=== PATIENT | male | born 1960 | race Caucasian/White ===

== ENCOUNTER 2017-07-14 16:10 | Emergency (ER) | payer MEDICAID, OTHER ==
[2017-07-14] MEDS ORDERED: Albuterol/Ipratropium 3.0-0.5 MG/3 ML Neb Soln ONE (16:26)
[2017-07-14] MEDS ORDERED: Sodium Chloride 0.9% 10 ML Syringe FLUSH PRN (16:32)
--- NOTE | 2017-07-14 16:39 | EDM.PDOC ---
ED HPI GENERAL MEDICAL PROBLEM - General Chief Complaint: Respiratory Problem Stated Complaint: HARD TIME BREATHING [id number] Time Seen by Provider: 07/14/17 16:33 Source of Information: Reports: Patient History Limitations: Reports: No Limitations - History of Present Illness INITIAL COMMENTS - FREE TEXT/NARRATIVE: 56 yo male presents with difficulty breathing. States that he has had shortness of breath for the pas three days. Worse with side laying. productive cough since . States that he has been having cold like symptoms. denies pain. No other complaints. Onset Date: 07/11/17 Duration: Getting Worse Location: Reports: Chest Quality: Reports: Ache Severity: Mild Improves with: Reports: None Worsens with: Reports: Breathing, Movement Context: Reports: Activity Associated Symptoms: Reports: No Other Symptoms Chest Pain Score (Numeric/FACES): 7 - Related Data Allergies Allergy/AdvReac Type Severity Reaction Status Date / Time No Known Allergies Allergy Verified 07/14/17 16:27 Home Meds: Home Meds . [No Known Home Meds] 10/19/16 [History] Past Medical History HEENT History: Reports: Impaired Vision Respiratory History: Reports: COPD Hematologic History: Reports: None Immunologic History: Reports: None Oncologic (Cancer) History: Reports: None - Past Surgical History Male Surgical History: Reports: Vasectomy Musculoskeletal Surgical History: Reports: Carpal Tunnel Social & Family History - Tobacco Use Smoking Status *Q: Light Tobacco Smoker Years of Tobacco use: 30 Packs/Tins Daily: 0.5 Used Tobacco, but Quit: No Second Hand Smoke Exposure: No - Alcohol Use Days Per Week of Alcohol Use: 6 Number of Drinks Per Day: 1 Total Drinks Per Week: 6 - Recreational Drug Use Recreational Drug Use: Yes Drug Use in Last 12 Months: No Recreational Drug Type: Reports: Marijuana/Hashish, Other (see below) Other Recreational Drug Type: Dope ED ROS GENERAL - Review of Systems Review Of Systems: ROS reveals no pertinent complaints other than HPI. ED EXAM, GENERAL - Physical Exam Exam: See Below Exam Limited By: No Limitations General Appearance: Alert, WD/WN, No Apparent Distress Eye Exam: Bilateral Eye: EOMI, PERRL Nose: Normal Inspection, Normal Mucosa, No Blood Throat/Mouth: Normal Inspection, Normal Lips, Normal Teeth, Normal Gums, Normal Oropharynx, Normal Voice, No Airway Compromise Head: Atraumatic, Normocephalic Neck: Normal Inspection, Supple, Non-Tender, Full Range of Motion Respiratory/Chest: Rhonchi, Wheezing (diffusely) Cardiovascular: Normal Peripheral Pulses, No Edema, No Gallop, No JVD, No Murmur , No Rub, Tachycardia GI/Abdominal: Normal Bowel Sounds, Soft, Non-Tender, No Organomegaly, No Distention, No Abnormal Bruit, No Mass Neurological: Alert, Oriented, CN II-XII Intact, Normal Cognition, Normal Gait, No Motor/Sensory Deficits Skin Exam: Warm, Dry, Intact, Normal Color, No Rash Course - Vital Signs Last Recorded V/S: Last Vital Signs Temp 100.2 F 07/14/17 16:20 Pulse 92 07/14/17 17:04 Resp 24 H 07/14/17 17:04 BP 118/84 07/14/17 17:04 Pulse Ox 99 07/14/17 17:04 - Orders/Labs/Meds Orders: Active Orders 24 hr Category Date Time Status EKG Documentation Completion [RC] STAT Care 07/14/17 16:32 Active RT Aerosol Therapy [RC] ASDIRECTED Care 07/14/17 17:29 Active Sodium Chloride 0.9% [Saline Flush] Med 07/14/17 16:32 Active 10 ml FLUSH ASDIRECTED PRN Saline Lock Insert [OM.PC] Stat Oth 07/14/17 16:32 Ordered Medication Orders Sodium Chloride (Saline Flush) 10 ml FLUSH ASDIRECTED PRN PRN Reason: Keep Vein Open Last Admin: 07/14/17 16:25 Dose: 10 ml Labs: Laboratory Tests 07/14/17 07/14/17 07/14/17 Range/Units 16:22 16:22 16:22 WBC 11.3 H (5.0-10.0) 10^3/uL RBC 4.81 (4.6-6.2) 10^6/uL Hgb 15.4 (14.0-18.0) g/dL Hct 45.0 (40.0-54.0) % MCV 93.6 (80-100) fL MCH 32.0 (27.0-34.0) pg MCHC 34.2 (33.0-35.0) g/dL Plt Count 314 (150-450) 10^3/uL Neut % (Auto) 83.3 H (42.2-75.2) % Lymph % (Auto) 8.2 L (20.5-50.1) % [place] % (Auto) 8.1 H (2-8) % Eos % (Auto) 0.2 L (1.0-3.0) % Baso % (Auto) 0.2 (0.0-1.0) % PT 9.9 (9.0-12.0) SEC INR 1.0 (0.9-1.2) Sodium 137 (135-145) mmol/L Potassium 3.6 (3.6-5.0) mmol/L Chloride 102 (101-111) mmol/L Carbon Dioxide 21.0 (21.0-31.0) mmol/L Anion Gap 17.6 BUN 12 (7-18) mg/dL Creatinine 1.1 (0.6-1.3) mg/dL Est Cr Clr Drug Dosing TNP Estimated GFR (MDRD) > 60 BUN/Creatinine Ratio 10.90 Glucose 163 H (74-105) mg/dL Calcium 8.9 (8.4-10.2) mg/dl Total Bilirubin 0.7 (0.2-1.0) mg/dL AST 33 (10-42) IU/L ALT 21 (10-60) IU/L Alkaline Phosphatase 72 (42-121) IU/L Creatine Kinase (26-174) IU/L Creatine Kinase Index (0-2.4) % CK-MB (CK-2) (0.4-4.7) ng/mL Troponin I < 0.02 (0.00-0.02) ng/ml B-Natriuretic Peptide 7 (0-100) pg/ml Total Protein 7.3 (6.7-8.2) g/dl Albumin 4.1 (3.2-5.5) g/dl Globulin 3.2 Albumin/Globulin Ratio 1.28 08/27/17 Range/Units 16:22 WBC (5.0-10.0) 10^3/uL RBC (4.6-6.2) 10^6/uL Hgb (14.0-18.0) g/dL Hct (40.0-54.0) % MCV (80-100) fL MCH (27.0-34.0) pg MCHC (33.0-35.0) g/dL Plt Count (150-450) 10^3/uL Neut % (Auto) (42.2-75.2) % Lymph % (Auto) (20.5-50.1) % [place] % (Auto) (2-8) % Eos % (Auto) (1.0-3.0) % Baso % (Auto) (0.0-1.0) % PT (9.0-12.0) SEC INR (0.9-1.2) Sodium (135-145) mmol/L Potassium (3.6-5.0) mmol/L Chloride (101-111) mmol/L Carbon Dioxide (21.0-31.0) mmol/L Anion Gap BUN (7-18) mg/dL Creatinine (0.6-1.3) mg/dL Est Cr Clr Drug Dosing Estimated GFR (MDRD) BUN/Creatinine Ratio Glucose (74-105) mg/dL Calcium (8.4-10.2) mg/dl Total Bilirubin (0.2-1.0) mg/dL AST (10-42) IU/L ALT (10-60) IU/L Alkaline Phosphatase (42-121) IU/L Creatine Kinase 70 (26-174) IU/L Creatine Kinase Index 3.6 H (0-2.4) % CK-MB (CK-2) 2.50 (0.4-4.7) ng/mL Troponin I (0.00-0.02) ng/ml B-Natriuretic Peptide (0-100) pg/ml Total Protein (6.7-8.2) g/dl Albumin (3.2-5.5) g/dl Globulin Albumin/Globulin Ratio Meds: Medications Generic Name Dose Route Start Last Admin Trade Name Freq PRN Reason Stop Dose Admin Sodium Chloride 10 ml 07/14/17 16:32 07/14/17 16:25 Saline Flush FLUSH 10 ml ASDIRECTED PRN Administration Keep Vein Open Discontinued Medications Generic Name Dose Route Start Last Admin Trade Name Freq PRN Reason Stop Dose Admin Albuterol 2.5 mg 07/14/17 17:29 07/14/17 17:34 Proventil Neb Soln NEB 07/14/17 17:30 2.5 mg ONETIME ONE Administration Albuterol/Ipratropium Confirm 07/14/17 16:26 08/27/17 16:31 Duoneb 3.0-0.5 Mg/3 Ml Administered 07/14/17 16:27 3 ml Dose Administration 3 ml .ROUTE .STK-MED ONE Amoxicillin/Clavulanate Potassium 1 tab 07/14/17 18:18 Augmentin 500 Mg\125 Mg PO 07/14/17 18:19 ONETIME ONE Methylprednisolone Sodium Succinate 125 mg 07/14/17 17:29 07/14/17 17:33 Solu-Medrol IVPUSH 07/14/17 17:30 125 mg ONETIME ONE Administration - Re-Assessments/Exams Free Text/Narrative Re-Assessment/Exam: 07/14/17 18:19 wheezing improved after breathing treatment and steroid. Pt breathing easier. Rhonchi decreased significantly. Will send home with albuterol neb as pt has machine at home. Departure - Departure Time of Disposition: 18:21 Disposition: Home, Self-Care 01 Condition: Good Clinical Impression: Bronchitis, COPD exacerbation - Discharge Information Instructions: Acute Bronchitis, [id number], Chronic Obstructive Pulmonary Disease Exacerbation, [id number] Forms: ED Department Discharge Additional Instructions: take the antibotic and steroid as directed. Use albuterol nebulizer as needed for shortness of breath. Follow up in 2-3 days with your doctor or in clinic. Return for worsening symptoms. Care Plan Goals: Augmentin prednisone Albuterol nebulizer - My Orders Last 24 Hours: My Active Orders 07/14/17 16:32 EKG Documentation Completion [RC] STAT Sodium Chloride 0.9% [Saline Flush] 10 ml FLUSH ASDIRECTED PRN Saline Lock Insert [OM.PC] Stat 07/14/17 17:29 RT Aerosol Therapy [RC] ASDIRECTED - Assessment/Plan Last 24 Hours: My Active Orders 07/14/17 16:32 EKG Documentation Completion [RC] STAT Sodium Chloride 0.9% [Saline Flush] 10 ml FLUSH ASDIRECTED PRN Saline Lock Insert [OM.PC] Stat 07/14/17 17:29 RT Aerosol Therapy [RC] ASDIRECTED
[2017-07-14 17:00] LABS: CHLORIDE,CL 102 mmol/L (101-111); SODIUM,NA 137 mmol/L (135-145)
[2017-07-14] MEDS ORDERED: methylPREDNISolone Sodium Succinate 125 MG/2 ML SDV IVPUSH ONE (17:29)
[2017-07-14] MEDS ORDERED: Albuterol 0.083% 2.5 MG/3 ML Neb Soln NEB ONE (17:29)
[2017-07-14] MEDS ORDERED: Amoxicillin/Clavulanate K 500-125 MG Tab PO ONE (18:18)
[2017-07-14 18:23] VITALS: BP 124/95
--- NOTE | 2017-07-17 15:16 | EKG ---
07/14/2017- FLAVIA NETTLES - EKG per my reading shows sinus rhythm at the rate of [address]. [facility] /[id number]
== END 2017-07-14 18:31 | disposition home or self-care (01) ==
LOC: DL.ED 16:10
DX: J44.1 Chronic obstructive pulmonary disease with (acute) exacerbation (principal); F17.210 Nicotine dependence, cigarettes, uncomplicated; Z98.890 Other specified postprocedural states
CPT/HCPCS: 36415; 71010; 80053; 82550; 82553; 83880; 84484; 85025; 85610; 93005; 96374; 99285; A9270; J2930; J7050; J7620

== ENCOUNTER 2020-01-11 02:47 | Emergency (ER) | payer MEDICAID ==
[2020-01-11] MEDS ORDERED: Ondansetron 4 MG Tab.DIS PO ONE ×2 (02:48→03:09)
[2020-01-11] MEDS ORDERED: Albuterol 0.083% 2.5 MG/3 ML Neb Soln INH ONE (02:48)
[2020-01-11 02:53] VITALS: BP 128/76; PULSE 94
[2020-01-11] MEDS ORDERED: Albuterol/Ipratropium 3.0-0.5 MG/3 ML Neb Soln NEB ONE (03:03)
--- NOTE | 2020-01-11 03:17 | EDM.PDOC ---
ED HPI GENERAL MEDICAL PROBLEM - General Chief Complaint: Gastrointestinal Problem Stated Complaint: FLU, SICK, Time Seen by Provider: 01/11/20 02:55 Source of Information: Reports: Patient History Limitations: Reports: No Limitations - History of Present Illness INITIAL COMMENTS - FREE TEXT/NARRATIVE: ED with c/o fevers body aches, vomiting past 7 days, Hx COPD. Smoker. Has been around granddaughter with influenza. Generalized Pain Score (Numeric/FACES): 9 - Related Data Allergies Allergy/AdvReac Type Severity Reaction Status Date / Time No Known Allergies Allergy Verified 01/11/20 02:53 Home Meds: Home Meds . [No Known Home Meds] 10/19/16 [History] Past Medical History HEENT History: Reports: Impaired Vision Respiratory History: Reports: COPD Hematologic History: Reports: None Immunologic History: Reports: None Oncologic (Cancer) History: Reports: None - Past Surgical History Male Surgical History: Reports: Vasectomy Musculoskeletal Surgical History: Reports: Carpal Tunnel Social & Family History - Tobacco Use Smoking Status *Q: Current Every Day Smoker Years of Tobacco use: 45 Packs/Tins Daily: 0.3 Second Hand Smoke Exposure: Yes - Recreational Drug Use Recreational Drug Use: Yes Drug Use in Last 12 Months: Yes Recreational Drug Type: Reports: Marijuana/Hashish ED ROS GENERAL - Review of Systems Review Of Systems: Comprehensive ROS is negative, except as noted in HPI. ED EXAM, GENERAL - Physical Exam Exam: See Below Exam Limited By: No Limitations General Appearance: Alert, Mild Distress Eye Exam: Bilateral Eye: EOMI Ears: Normal External Exam, Hearing Grossly Normal, Normal TMs Nose: Normal Inspection Throat/Mouth: Normal Inspection, Normal Oropharynx Head: Atraumatic, Normocephalic Respiratory/Chest: No Respiratory Distress, Rales (throughout), Wheezing, Other (loose bronchial cough) Cardiovascular: Regular Rate, Rhythm GI/Abdominal: Normal Bowel Sounds, Soft Extremities: Normal Inspection Neurological: Alert, Oriented, Normal Cognition Psychiatric: Normal Affect, Normal Mood Skin Exam: Warm, Dry, Intact, Normal Color Course - Vital Signs Last Recorded V/S: Last Vital Signs Temp 99.3 F 01/11/20 02:50 Pulse 94 01/11/20 02:50 Resp 18 01/11/20 02:50 BP 128/76 01/11/20 02:50 Pulse Ox 97 01/11/20 02:50 - Orders/Labs/Meds Orders: Active Orders 24 hr Category Date Time Status RT Aerosol Therapy [RC] ASDIRECTED Care 01/11/20 03:03 Active CXR [Chest 2V] [CR] Urgent Exams 01/11/20 03:03 Taken CMP [COMPREHENSIVE METABOLIC PN,CMP] [CHEM] Stat Lab 01/11/20 03:15 Received Labs: Laboratory Tests 01/11/20 Range/Units 03:15 WBC 7.1 (5.0-10.0) 10^3/uL RBC 4.95 (4.6-6.2) 10^6/uL Hgb 15.7 (14.0-18.0) g/dL Hct 44.3 (40.0-54.0) % MCV 89.5 D (80-100) fL MCH 31.7 (27.0-34.0) pg MCHC 35.4 H (33.0-35.0) g/dL Plt Count 223 D (150-450) 10^3/uL Neut % (Auto) 75.3 H (42.2-75.2) % Lymph % (Auto) 14.9 L (20.5-50.1) % [place] % (Auto) 9.2 H (2-8) % Eos % (Auto) 0.3 L (1.0-3.0) % Baso % (Auto) 0.3 (0.0-1.0) % Meds: Medications Discontinued Medications Generic Name Dose Route Start Last Admin Trade Name Sabasq PRN Reason Stop Dose Admin Albuterol/Ipratropium 3 ml 01/11/20 03:03 01/11/20 03:07 Duoneb 3.0-0.5 Mg/3 Ml NEB 01/11/20 03:04 3 ml ONETIME ONE Administration Ondansetron HCl 4 mg 01/11/20 03:09 01/11/20 03:16 Zofran Odt PO 01/11/20 03:10 4 mg ONETIME ONE Administration - Radiology Interpretation Free Text/Narrative:: [facility] [place] [facility] Final Radiology Report Call: [phone] assistance Online chat: [email or web address] Name: FLAVIA NETTLES Age: 59Years M Date: 01/11/2020 SSN: -- : [id number] Study: XR CHEST 2 VIEWS FRONTAL & LAT Requesting Physician: RENATO CENTENO Images: 2 Addl Studies: Provided Clinical History: Contrast: Contrast Medium: Contrast Amount: Contrast Method: CONFIDENTIALITY STATEMENT This report is intended only for use by the referring physician, and only in accordance with law. If you received this in error, call [phone]. Page 1 of 1 PROCEDURE INFORMATION: Exam: XR Chest, 2 Views Exam date and time: 01/11/2020 3:17 AM Age: 59 years old Clinical indication: Cough and shortness of breath and wheezing TECHNIQUE: Imaging protocol: XR of the chest Views: 2 views. COMPARISON: CR Chest 1V Frontal 07/14/2017 4:39 PM FINDINGS: Lungs: There are stable calcified granulomas seen within the hemithoraces. There are mildly increased peribronchial markings present bilaterally, findings could represent mild bronchitis. Pleural space: Unremarkable. No pleural effusion. No pneumothorax. Heart/Mediastinum: Unremarkable. No cardiomegaly. Bones/joints: Unremarkable. IMPRESSION: 1. Mildly increased peribronchial markings may represent mild bilateral bronchitis. 2. Stable calcified granulomas present bilaterally. Thank you for allowing us to participate in the care of your patient. Dictated and Authenticated by: Moncho Nielsen MD 01/11/2020 3:37 AM Central Time ([place] & [place] Departure - Departure Time of Disposition: 03:49 Disposition: Home, Self-Care 01 Condition: Good Clinical Impression: COPD (chronic obstructive pulmonary disease) with chronic bronchitis, Vomiting - Discharge Information *PRESCRIPTION DRUG MONITORING PROGRAM REVIEWED*: No *COPY OF PRESCRIPTION DRUG MONITORING REPORT IN PATIENT SERGEI: No Instructions: Chronic Obstructive Pulmonary Disease Exacerbation, [id number] Forms: ED Department Discharge Additional Instructions: humidification prednisone taper robitussin per label instructions light bland diet zofran 4mg ODT one every 6 hours as needed for nausea and vomiting Albuterol 2.5/3ml one every 4 hours as needed for wheezing and cough alternate tylenol and ibuprofen every 4 hours as needed for fever follow up if symptoms not improving or worsen Sepsis Event Note - Evaluation Sepsis Screening Result: No Definite Risk - Focused Exam Vital Signs: Vital Signs Temp Pulse Resp BP Pulse Ox 01/11/20 02:50 99.3 F 94 18 128/76 97 Date Exam was Performed: 01/11/20 Time Exam was Performed: 03:39 - My Orders Last 24 Hours: My Active Orders 01/11/20 03:03 RT Aerosol Therapy [RC] ASDIRECTED CXR [Chest 2V] [CR] Urgent 01/11/20 03:15 CMP [COMPREHENSIVE METABOLIC PN,CMP] [CHEM] Stat - Assessment/Plan Last 24 Hours: My Active Orders 01/11/20 03:03 RT Aerosol Therapy [RC] ASDIRECTED CXR [Chest 2V] [CR] Urgent 01/11/20 03:15 CMP [COMPREHENSIVE METABOLIC PN,CMP] [CHEM] Stat
[2020-01-11 03:38] LABS: ANION GAP 13.8; CHLORIDE,CL 98 mmol/L (101-111); SODIUM,NA 130 mmol/L (135-145)
[2020-01-11] MEDS ORDERED: Albuterol 0.083% 2.5 MG/3 ML Neb Soln ONE (03:55)
[2020-01-11] MEDS ORDERED: Ondansetron 4 MG Tab.DIS ONE (03:55)
== END 2020-01-11 04:00 | disposition home or self-care (01) ==
LOC: DL.ED 02:47
DX: J44.9 Chronic obstructive pulmonary disease, unspecified (principal); R11.10 Vomiting, unspecified; F17.210 Nicotine dependence, cigarettes, uncomplicated
CPT/HCPCS: 36415; 71046; 80053; 85025; 87804; 94640; 99284; A9270; J7613-GY; J7620-GY

== ENCOUNTER 2021-06-14 18:29 | Emergency (ER) | payer MEDICAID ==
[2021-06-14] MEDS ORDERED: predniSONE 20 MG Tab PO ONE (18:30)
[2021-06-14] MEDS ORDERED: Albuterol/Ipratropium 3.0-0.5 MG/3 ML Neb Soln NEB ONE (18:47)
[2021-06-14] MEDS ORDERED: methylPREDNISolone Sodium Succinate 125 MG/2 ML SDV IVPUSH ONE (18:47)
[2021-06-14] MEDS ORDERED: Albuterol/Ipratropium 3.0-0.5 MG/3 ML Neb Soln ONE (18:48)
[2021-06-14] MEDS ORDERED: Albuterol 0.083% 2.5 MG/3 ML Neb Soln ONE (18:50)
--- NOTE | 2021-06-14 18:50 | EDM.PDOC ---
<Ashli Terrazas - Last Filed: 06/14/21 18:38> ED HPI GENERAL MEDICAL PROBLEM - General Stated Complaint: TROUBLE BREATHING, CHEST TIGHTNESS Time Seen by Provider: 06/14/21 19:00 Source of Information: Reports: Patient, RN, RN Notes Reviewed History Limitations: Reports: No Limitations - Related Data Allergies Allergy/AdvReac Type Severity Reaction Status Date / Time No Known Allergies Allergy Verified 06/14/21 18:48 Home Meds: Home Meds Albuterol [Proventil Neb Soln] 2.5 mg .XX Q4H PRN 06/14/21 [History] Past Medical History HEENT History: Reports: Impaired Vision Respiratory History: Reports: COPD Hematologic History: Reports: None Immunologic History: Reports: None Oncologic (Cancer) History: Reports: None - Past Surgical History Male Surgical History: Reports: Vasectomy Musculoskeletal Surgical History: Reports: Carpal Tunnel Departure - Departure Disposition: Home, Self-Care 01 Clinical Impression: Exacerbation of asthma Qualifiers: Asthma severity: moderate Asthma persistence: persistent Qualified Code(s): J45.41 - Moderate persistent asthma with (acute) exacerbation Instructions: Asthma, Adult, [id number] Forms: ED Department Discharge Additional Instructions: Clinic recheck this week urgent follow up if difficulty breathing and no improvement with nebs albuterol inhaler 2 pffs every 4 hours as needed for wheezing cough tylenol 500mg every 4 hours as needed for fever/ discomfort decrease or stop tobacco use prednisone taper azithromycin 250mg one daily for 4 days Albuterol neb 2.5mg/3ml Neb dameon 4 hours as neededlight activity tomorrow avoid heat and humidity <Shannon Stewart - Last Filed: 06/15/21 03:18> ED HPI GENERAL MEDICAL PROBLEM - History of Present Illness INITIAL COMMENTS - FREE TEXT/NARRATIVE: ED with c/o increased SOB and wheezing past 5 days, worse today, No relief with neb [employer]. No fever or chills. Does not have rescue inhaler to use at work, currently only using neb. Productive cough at times, thick white. Chest Pain Score (Numeric/FACES): 7 ED ROS GENERAL - Review of Systems Review Of Systems: Comprehensive ROS is negative, except as noted in HPI. ED EXAM, GENERAL - Physical Exam Exam: See Below Exam Limited By: No Limitations General Appearance: Alert, Moderate Distress, Thin Eye Exam: Bilateral Eye: EOMI Ears: Normal External Exam, Normal TMs Nose: Normal Inspection Throat/Mouth: Normal Inspection Head: Atraumatic, Normocephalic Neck: Normal Inspection Respiratory/Chest: Decreased Breath Sounds, Wheezing (coarse inspriatory expiratory wheeze) Cardiovascular: Normal Peripheral Pulses, Regular Rate, Rhythm, Tachycardia GI/Abdominal: Normal Bowel Sounds Back Exam: Normal Inspection Extremities: Normal Inspection Neurological: Alert, Oriented, Normal Cognition Psychiatric: Normal Affect Skin Exam: Warm, Dry, Intact, Tattoo(s) Course - Vital Signs Last Recorded V/S: Last Vital Signs Temp 99.4 F 06/14/21 21:30 Pulse 94 06/14/21 21:30 Resp 22 H 06/14/21 21:30 BP 98/81 06/14/21 21:30 Pulse Ox 94 L 06/14/21 21:30 - Orders/Labs/Meds Orders: Active Orders 24 hr Category Date Time Status CULTURE BLOOD [BC] Stat Lab 06/14/21 19:30 Received CULTURE BLOOD [BC] Stat Lab 06/14/21 19:33 Received Blood Culture x2 Reflex Set [OM.PC] Stat Oth 06/14/21 18:55 Ordered Labs: Laboratory Tests 06/14/21 06/14/21 06/14/21 Range/Units 18:37 18:42 18:42 WBC 11.9 H (5.0-10.0) 10^3/uL RBC 4.65 (4.6-6.2) 10^6/uL Hgb 14.9 (14.0-18.0) g/dL Hct 43.0 (40.0-54.0) % MCV 92.5 D (80-100) fL MCH 32.0 (27.0-34.0) pg MCHC 34.7 (33.0-35.0) g/dL Plt Count 306 D (150-450) 10^3/uL Neut % (Auto) 84.2 H (42.2-75.2) % Lymph % (Auto) 9.1 L (20.5-50.1) % [place] % (Auto) 6.4 (2-8) % Eos % (Auto) 0.2 L (1.0-3.0) % Baso % (Auto) 0.1 (0.0-1.0) % Sodium 133 L (136-145) mmol/L Potassium 4.5 (3.5-5.1) mmol/L Chloride 97 L (98-107) mmol/L Carbon Dioxide 26 (21-32) mmol/L Anion Gap 14.5 H (7-13) mEq/L BUN 19 H (7-18) mg/dL Creatinine 1.02 (0.70-1.30) mg/dL Est Cr Clr Drug Dosing 64.42 mL/min Estimated GFR (MDRD) > 60 BUN/Creatinine Ratio 18.6 (No establ ref range) Glucose 111 H (70-99) mg/dL Lactic Acid (0.4-2.0) mmol/L Calcium 8.6 (8.5-10.1) mg/dL Magnesium 1.8 (1.8-2.4) mg/dL Total Bilirubin 0.6 (0.2-1.0) mg/dL AST 34 (15-37) U/L ALT 28 (16-63) U/L Alkaline Phosphatase 79 (46-116) U/L Troponin I High Sens 7 (<=76) pg/mL C-Reactive Protein 0.8 (0.0-0.9) mg/dL Total Protein 7.0 (6.4-8.2) g/dL Albumin 3.8 (3.4-5.0) g/dL Globulin 3.2 Albumin/Globulin Ratio 1.2 Amylase 40 (25-115) U/L Lipase 111 (73-393) U/L Urine Color (YELLOW) Urine Appearance (CLEAR) Urine pH (5.0-9.0) Ur Specific [place] (1.005-1.030) Urine Protein (NEGATIVE) Urine Glucose (UA) (NEGATIVE) Urine Ketones (NEGATIVE) Urine Occult Blood (NEGATIVE) Urine Nitrite (NEGATIVE) Urine Bilirubin (NEGATIVE) Urine Urobilinogen (0.2-1.0) mg/dL Ur Leukocyte Esterase (NEGATIVE) Urine Opiates Screen (NEGATIVE) Ur Oxycodone Screen (NEGATIVE) Urine Methadone Screen (NEGATIVE) Ur Barbiturates Screen (NEGATIVE) U Tricyclic Antidepress (NEGATIVE) Ur Phencyclidine Scrn (NEGATIVE) Ur Amphetamine Screen (NEGATIVE) U Methamphetamines Scrn (NEGATIVE) Urine MDMA Screen (NEGATIVE) U Benzodiazepines Scrn (NEGATIVE) Urine Cocaine Screen (NEGATIVE) U Marijuana (THC) Screen (NEGATIVE) Ethyl Alcohol < 3 (0) mg/dL Influenza Type A RNA Negative (NEGATIVE) Influenza Type B RNA Negative (NEGATIVE) SARS-CoV-2 RNA ([place]) Negative (NEGATIVE) 06/14/21 06/14/21 06/14/21 Range/Units 18:42 19:49 19:49 WBC (5.0-10.0) 10^3/uL RBC (4.6-6.2) 10^6/uL Hgb (14.0-18.0) g/dL Hct (40.0-54.0) % MCV (80-100) fL MCH (27.0-34.0) pg MCHC (33.0-35.0) g/dL Plt Count (150-450) 10^3/uL Neut % (Auto) (42.2-75.2) % Lymph % (Auto) (20.5-50.1) % [place] % (Auto) (2-8) % Eos % (Auto) (1.0-3.0) % Baso % (Auto) (0.0-1.0) % Sodium (136-145) mmol/L Potassium (3.5-5.1) mmol/L Chloride (98-107) mmol/L Carbon Dioxide (21-32) mmol/L Anion Gap (7-13) mEq/L BUN (7-18) mg/dL Creatinine (0.70-1.30) mg/dL Est Cr Clr Drug Dosing mL/min Estimated GFR (MDRD) BUN/Creatinine Ratio (No establ ref range) Glucose (70-99) mg/dL Lactic Acid 1.0 (0.4-2.0) mmol/L Calcium (8.5-10.1) mg/dL Magnesium (1.8-2.4) mg/dL Total Bilirubin (0.2-1.0) mg/dL AST (15-37) U/L ALT (16-63) U/L Alkaline Phosphatase (46-116) U/L Troponin I High Sens (<=76) pg/mL C-Reactive Protein (0.0-0.9) mg/dL Total Protein (6.4-8.2) g/dL Albumin (3.4-5.0) g/dL Globulin Albumin/Globulin Ratio Amylase (25-115) U/L Lipase (73-393) U/L Urine Color Yellow (YELLOW) Urine Appearance Clear (CLEAR) Urine pH 6.0 (5.0-9.0) Ur Specific [place] 1.015 (1.005-1.030) Urine Protein Negative (NEGATIVE) Urine Glucose (UA) Negative (NEGATIVE) Urine Ketones 15 H (NEGATIVE) Urine Occult Blood Negative (NEGATIVE) Urine Nitrite Negative (NEGATIVE) Urine Bilirubin Negative (NEGATIVE) Urine Urobilinogen 1.0 (0.2-1.0) mg/dL Ur Leukocyte Esterase Negative (NEGATIVE) Urine Opiates Screen Negative (NEGATIVE) Ur Oxycodone Screen Negative (NEGATIVE) Urine Methadone Screen Negative (NEGATIVE) Ur Barbiturates Screen Negative (NEGATIVE) U Tricyclic Antidepress Negative (NEGATIVE) Ur Phencyclidine Scrn Negative (NEGATIVE) Ur Amphetamine Screen Negative (NEGATIVE) U Methamphetamines Scrn Negative (NEGATIVE) Urine MDMA Screen Negative (NEGATIVE) U Benzodiazepines Scrn Negative (NEGATIVE) Urine Cocaine Screen Negative (NEGATIVE) U Marijuana (THC) Screen Positive H (NEGATIVE) Ethyl Alcohol (0) mg/dL Influenza Type A RNA (NEGATIVE) Influenza Type B RNA (NEGATIVE) SARS-CoV-2 RNA ([place]) (NEGATIVE) Meds: Medications Discontinued Medications Generic Name Dose Route Start Last Admin Trade Name Diaz PRN Reason Stop Dose Admin Acetaminophen 650 mg 06/14/21 19:07 06/14/21 19:26 Acetaminophen 325 Mg Tab PO 06/14/21 19:08 650 mg NOW ONE Administration Albuterol Confirm 06/14/21 18:50 06/14/21 18:52 Albuterol 0.083% 2.5 Mg/3 Ml Neb Soln Administered 06/14/21 18:51 2.5 mg Dose Administration 2.5 mg .ROUTE .STK-MED ONE Albuterol Confirm 06/14/21 21:19 06/14/21 21:26 Albuterol 6.7 Gm Inhaler Administered 06/14/21 21:20 Not Given Dose 6.7 gm INH .STK-MED ONE Albuterol/Ipratropium 3 ml 06/14/21 18:47 06/14/21 19:19 Albuterol/Ipratropium 3.0-0.5 Mg/3 Ml Neb Soln NEB 06/14/21 18:48 3 ml ONETIME ONE Administration Albuterol/Ipratropium Confirm 06/14/21 18:48 06/14/21 19:02 Albuterol/Ipratropium 3.0-0.5 Mg/3 Ml Neb Soln Administered 06/14/21 18:49 Not Given Dose 3 ml .ROUTE .STK-MED ONE Azithromycin Confirm 06/14/21 21:19 06/14/21 21:26 Azithromycin 250 Mg Tab Administered 06/14/21 21:20 500 mg Dose Administration 500 mg .ROUTE .STK-MED ONE Sodium Chloride 1,000 mls @ 100 mls/hr 06/14/21 18:56 06/14/21 19:04 Normal Saline IV 06/15/21 04:55 100 mls/hr .BOLUS ONE Administration Ceftriaxone Sodium 1 gm/ 50 mls @ 100 mls/hr 06/14/21 19:07 06/14/21 19:26 Sodium Chloride IV 06/14/21 19:36 100 mls/hr ONETIME ONE Administration Lorazepam 1 mg 06/14/21 18:54 06/14/21 19:00 Lorazepam 2 Mg/Ml Sdv IVPUSH 06/14/21 18:55 1 mg ONETIME ONE Administration Methylprednisolone Sodium Succinate 125 mg 06/14/21 18:47 06/14/21 19:00 Methylprednisolone Sodium Succinate 125 Mg/2 Ml Sdv IVPUSH 06/14/21 18:48 125 mg ONETIME ONE Administration Prednisone Confirm 06/14/21 21:19 06/14/21 21:29 Prednisone 20 Mg Tab Administered 06/14/21 21:20 Not Given Dose 40 mg .ROUTE .STK-MED ONE - Re-Assessments/Exams Free Text/Narrative Re-Assessment/Exam: 06/15/21 03:17 Moderate improvement with multiple nebs and steroid. Improved exchange, slight wheeze noted bialteray expiratory greater right prior to discharge. Departure - Departure Time of Disposition: 21:24 Reason for Transfer *Q: Other Condition: Fair Sepsis Event Note (ED) - Focused Exam Vital Signs: Vital Signs Temp Pulse Resp BP Pulse Ox 06/14/21 21:30 99.4 F 94 22 H 98/81 94 L 06/14/21 19:06 101.1 F H 06/14/21 18:52 100.7 F H 116 H 24 H 128/85 95 - My Orders Last 24 Hours: My Active Orders 06/14/21 18:55 Blood Culture x2 Reflex Set [OM.PC] Stat 06/14/21 19:30 CULTURE BLOOD [BC] Stat 06/14/21 19:33 CULTURE BLOOD [BC] Stat - Assessment/Plan Last 24 Hours: My Active Orders 06/14/21 18:55 Blood Culture x2 Reflex Set [OM.PC] Stat 06/14/21 19:30 CULTURE BLOOD [BC] Stat 06/14/21 19:33 CULTURE BLOOD [BC] Stat
[2021-06-14] MEDS ORDERED: LORazepam 2 MG/ML SDV IVPUSH ONE (18:54)
[2021-06-14] MEDS ORDERED: Sodium Chloride 0.9% 1,000 ML IV ONE (18:56)
--- NOTE | 2021-06-14 19:04 | CR ---
PROCEDURE INFORMATION: Exam: XR Chest Exam date and time: 06/14/2021 6:49 PM Age: 60 years old Clinical indication: Other: Chest pain TECHNIQUE: Imaging protocol: XR of the chest. Views: 1 view. COMPARISON: CR Chest 2V 01/11/2020 3:17 AM FINDINGS: Tubes, catheters and devices: Leads project over the chest. Lungs: Slight hyperinflation. Pleural spaces: Unremarkable. No pleural effusion. No pneumothorax. Heart/Mediastinum: Unremarkable. No cardiomegaly. Bones/joints: Unremarkable. Other findings: Calcified nodules again noted. IMPRESSION: No acute cardiopulmonary disease
[2021-06-14] MEDS ORDERED: cefTRIAXone 1 GM in Sodium Chloride 0.9% 50 ML IV ONE (19:07)
[2021-06-14] MEDS ORDERED: Acetaminophen 325 MG Tab PO ONE (19:07)
[2021-06-14 19:16] LABS: ANION GAP 14.5 mEq/L (7-13); CHLORIDE,CL 97 mmol/L (98-107); SODIUM,NA 133 mmol/L (136-145)
[2021-06-14 19:30] LABS: CORONAVIRUS COVID-19 NAA NEGATIVE (NEGATIVE)
[2021-06-14 20:03] LABS: AMPHETAMINES,URINE NEGATIVE (NEGATIVE); BARBITURATES,URINE NEGATIVE (NEGATIVE); BENZODIAZEPINE,URINE NEGATIVE (NEGATIVE); MDMA (ECSTASY), URINE NEGATIVE (NEGATIVE); METHADONE,URINE NEGATIVE (NEGATIVE); METHAMPHETAMINES,URINE NEGATIVE (NEGATIVE); OPIATES,URINE NEGATIVE (NEGATIVE); OXYCODONE,URINE NEGATIVE (NEGATIVE); PHENCYCLIDINE,URINE NEGATIVE (NEGATIVE); TCA,URINE NEGATIVE (NEGATIVE)
[2021-06-14] MEDS ORDERED: Albuterol 6.7 GM Inhaler INH ONE (21:19)
[2021-06-14] MEDS ORDERED: predniSONE 20 MG Tab ONE (21:19)
[2021-06-14] MEDS ORDERED: Azithromycin 250 MG Tab ONE (21:19)
[2021-06-14 21:54] VITALS: BP 98/81; PULSE 94
== END 2021-06-14 21:45 | disposition home or self-care (01) ==
LOC: DL.ED 18:29
DX: J45.41 Moderate persistent asthma with (acute) exacerbation (principal); Z20.822 Contact with and (suspected) exposure to COVID-19
CPT/HCPCS: 0240U; 36415; 71045; 80053; 80305-QW; 80307; 81003; 82150; 83605; 83690; 83735; 84484; 85025; 86140; 87040; 93005; 93010; 96365; 96375; 99283; 99285-25; A9270-GY; J0696; J2060; J2930; J7030; J7512; J7613-GY; J7620-GY

== ENCOUNTER 2022-09-21 08:41 | Emergency (ER) | payer BC, MEDICAID ==
[2022-09-21] MEDS ORDERED: Albuterol/Ipratropium 3.0-0.5 MG/3 ML Neb Soln NEB ONE (08:57)
[2022-09-21] MEDS ORDERED: methylPREDNISolone Sodium Succinate 125 MG/2 ML SDV IM ONE (08:59)
[2022-09-21 09:37] LABS: CORONAVIRUS COVID-19 NAA NEGATIVE (NEGATIVE); RESPIRATORY SYNCYTIAL VIR NAA NEGATIVE (NEGATIVE)
[2022-09-21 10:16] VITALS: BP 110/94; PULSE 72
== END 2022-09-21 10:11 | disposition home or self-care (01) ==
LOC: DL.ED 08:41
DX: J44.1 Chronic obstructive pulmonary disease with (acute) exacerbation (principal); F17.210 Nicotine dependence, cigarettes, uncomplicated; Z20.822 Contact with and (suspected) exposure to COVID-19
CPT/HCPCS: 0241U; 71045; 94640; 96372; 99284; J2930; J7620-GY